=== PATIENT | female | born 1995 ===

== ENCOUNTER 2017-01-31 11:02 | Emergency (ER) | payer MEDICAID ==
[2017-01-31 11:13] VITALS: BMI 29.8
[2017-01-31 11:16] VITALS: TEMP 98.4
[2017-01-31] MEDS ORDERED: Sodium Chloride 0.9% 1,000 ML IV STA (11:36)
--- NOTE | 2017-01-31 11:43 | ED PDOC ---
Arrival/HPI - General Chief Complaint: Syncope Time Seen by Provider: 01/31/17 11:13 Historian: Patient - History of Present Illness Narrative History of Present Illness (Text): 01/31/17 11:37 Oskar Luna is a 21 year old female who presents to the emergency department for evaluation following a syncopal episode prior to arrival. States she felt dizzy, nauseated and room spinning sensation immediately before passing out. States she experienced similar symptoms 6 months ago and was evaluated at [facility] at that time. She also informs that she has been feeling intermittent dizzy spells and transient syncopal episodes over the past month, which has increased in frequency recently. Currently complains of a posterior headache, and neck pain due to fall. Also notes she had a cough for 10 days and mild chest pain upon deep inspiration. Denies any fever, shortness of breath, vomiting, diarrhea , or any other complaints at this time. Time/Duration: Prior to Arrival Symptom Onset: Sudden Symptom Course: Improving Activities at Onset: Light Context: Home Past Medical History - Provider Review Nursing Documentation Reviewed: Yes - Infectious Disease Hx of Infectious Diseases: None - Cardiac Hx Cardiac Disorders: Yes Hx Hypotension: Yes - Pulmonary Hx Respiratory Disorders: No - Neurological Hx Neurological Disorder: Yes Hx Dizziness: Yes Hx Syncope: Yes - HEENT Hx HEENT Disorder: No - Renal Hx Renal Disorder: No - Endocrine/Metabolic Hx Endocrine Disorders: No - Hematological/Oncological Hx Blood Disorders: No - Integumentary Hx Dermatological Disorder: No - Musculoskeletal/Rheumatological Hx Musculoskeletal Disorders: No - Gastrointestinal Hx Gastrointestinal Disorders: No - Genitourinary/Gynecological Hx Genitourinary Disorders: No - Psychiatric Hx Psychophysiologic Disorder: Yes Hx Anxiety: Yes Hx Substance Use: No - Surgical History Other/Comment: L foot surgery - Anesthesia Hx Anesthesia: Yes Hx Anesthesia Reactions: No Family/Social History - Physician Review Nursing Documentation Reviewed: Yes Family/Social History: No Known Family HX Smoking Status: Never Smoked Hx Alcohol Use: No Hx Substance Use: No Allergies/Home Meds Allergies/Adverse Reactions: Allergies No Known Allergies Allergy (Verified 01/31/17 11:13) Home Medications: Home Meds Medication Instructions Recorded Confirmed Norethindrone-E.estradiol-Iron [Lo 1 tab PO DAILY 01/31/17 01/31/17 Loestrin Fe 1-10 Tablet] Spironolactone [Aldactone] 50 mg PO DAILY 01/31/17 01/31/17 Review of Systems - Physician Review All systems were reviewed & negative as marked: Yes - Review of Systems Constitutional: Normal. absent: Fatigue, Fevers Respiratory: Cough. absent: SOB, Sputum Cardiovascular: Chest Pain (upon deep inspiration ) Gastrointestinal: Nausea. absent: Diarrhea, Vomiting Neurological: Headache. absent: Dizziness, Focal Weakness Psychiatric: Normal Physical Exam Vital Signs Reviewed: Yes Vital Signs Temp Pulse Resp BP Pulse Ox 01/31/17 12:47 74 18 108/72 100 01/31/17 11:15 98.4 F 76 18 106/69 99 Temperature: Afebrile Blood Pressure: Normal Pulse: Regular Respiratory Rate: Normal Appearance: Positive for: Well-Appearing, Non-Toxic, Comfortable Pain Distress: None Mental Status: Positive for: Alert and Oriented X 3 - Systems Exam Head: Present: Atraumatic, Normocephalic Pupils: Present: PERRL Extroacular Muscles: Present: EOMI Conjunctiva: Present: Normal Ears: Present: Normal, NORMAL TM, Normal Canal. No: Erythema, TM Bulging Mouth: Present: Moist Mucous Membranes Pharnyx: Present: Normal. No: ERYTHEMA, EXUDATE, TONSILS ENLARGED Neck: Present: Normal Range of Motion, MIDLINE TENDERNESS (mid c-spine ttp). No : Paraspinal Tenderness Respiratory/Chest: Present: Clear to Auscultation, Good Air Exchange. No: Respiratory Distress, Accessory Muscle Use Cardiovascular: Present: Regular Rate and Rhythm, Normal S1, S2. No: Murmurs Abdomen: Present: Normal Bowel Sounds. No: Tenderness, Distention, Peritoneal Signs, Rebound, Guarding Upper Extremity: Present: Normal Inspection. No: Cyanosis, Edema Lower Extremity: Present: Normal Inspection. 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 finger to nose test negative. ) Skin: Present: Warm, Dry, Normal Color. No: Rashes Psychiatric: Present: Alert, Oriented x 3, Normal Insight, Normal Concentration Medical Decision Making ED Course and Treatment: 01/31/17 11:47 Impression: A 21 year old female who presents to the emergency department complaining of headache and neck pain s/p syncopal episode. Patient is alert, Oriented X3 and has no focal neurological deficits. Differential Diagnosis included but are not limited to: Anxiety vs. Vertigo vs. Cardioneurogenic syncope Plan: -- CT cervial spine -- CT Head -- EKG -- Labs -- CXR -- Toradol -- Antivert -- IV fluids -- POC -- Urinalysis -- Reassess and disposition Progress Notes: 01/31/17 11:50 EKG interpreted by me: NSR @ 82 bpm. normal axis. normal interval. normal ekg 01/31/17 12:40 CT Head reviewed: Normal CT of the head CT cervical spine: normal CXR: nad as read by me. 01/31/17 13:32 Patient with noted history with normal ekg, brain CT, CXR, and blood work as well as normal exam. No acute findings to suggest grave etiology. Given recurrence of the events, will recommend cardiology and neuro follow up ( patient reports previous neuro work up years ago, including normal EEG). Urine also shows UTI - will be ok for d/c to follow up outpatient. - Lab Interpretations Lab Results: 01/31/17 12:00 01/31/17 11:36 Lab Results 01/31/17 12:00: D-Dimer, Quantitative 0.19 01/31/17 12:00: WBC 8.5, RBC 4.14, Hgb 12.0, Hct 35.9 L, MCV 86.7, MCH 29.0, MCHC 33.4, RDW 12.6, Plt Count 210, MPV 10.4, Gran % 70.5 H, Lymph % (Auto) 19.8 L, Dewey % (Auto) 7.1 H, Eos % (Auto) 2.4, Baso % (Auto) 0.2, Gran # 6.00, Lymph # 1.7, Dewey # 0.6, Eos # 0.2, Baso # 0.02 01/31/17 11:45: Urine Opiates Screen Negative, Urine Methadone Screen Negative, Ur Barbiturates Screen Negative, Ur Phencyclidine Scrn Negative, Ur Amphetamines Screen Negative, U Benzodiazepines Scrn Negative, U Oth Cocaine Metabols Negative, U Cannabinoids Screen Negative 01/31/17 11:45: Urine Color Yellow, Urine Appearance Sl cloudy, Urine pH 6.5, Ur Specific [place] 1.020, Urine Protein Trace H, Urine Glucose (UA) Negative, Urine Ketones Negative, Urine Blood Negative, Urine Nitrate Negative, Urine Bilirubin Negative, Urine Urobilinogen 1.0 H, Ur Leukocyte Esterase Small H, Urine RBC 0 - 2, Urine WBC 5 - 10, Ur Epithelial Cells 4 - 5, Urine Bacteria Mod 01/31/17 11:36: Sodium 140, Potassium 3.7, Chloride 101, Carbon Dioxide 28, Anion Gap 15, BUN 11, Creatinine 0.8, Est GFR ( Amer) > 60, Est GFR (Non- Af Amer) > 60, Random Glucose 94, Calcium 9.3, Magnesium 2.0, Total Bilirubin 0.6, AST 25, ALT 30, Alkaline Phosphatase 79, Total Protein 7.9, Albumin 4.3, Globulin 3.6, Albumin/Globulin Ratio 1.2, Lipase 68 I have reviewed the lab results: Yes - RAD Interpretation Narrative RAD Interpretations (Text): 01/31/17 12:39 PROCEDURE: CT HEAD WITHOUT CONTRAST. FINDINGS: HEMORRHAGE: No intracranial hemorrhage. BRAIN: No mass effect or edema. No atrophy or chronic microvascular ischemic changes. VENTRICLES: Unremarkable. No hydrocephalus. CALVARIUM: Unremarkable. PARANASAL SINUSES: Unremarkable as visualized. No significant inflammatory changes. MASTOID AIR CELLS: Unremarkable as visualized. No inflammatory changes. OTHER FINDINGS: None. IMPRESSION: Normal CT of the Head. Radiology Orders: 01/31/17 11:33 Brain [HEAD W/O CONTRAST] [CT] Stat 01/31/17 11:34 CERVICAL SPINE W/O CONTRAST [CT] Stat 01/31/17 11:35 CHEST TWO VIEWS (PA/LAT) [RAD] Stat [employer] Manager: Radiologist - Medication Orders Current Medication Orders: Discontinued Medications Sodium Chloride (Sodium Chloride 0.9%) 1,000 mls @ 999 mls/hr IV .Q1H1M STA Stop: 01/31/17 12:36 Last Admin: 01/31/17 12:06 Dose: 999 mls/hr Ketorolac Tromethamine (Toradol) 30 mg IVP STAT STA Stop: 01/31/17 11:37 Last Admin: 01/31/17 12:06 Dose: 30 mg Meclizine HCl (Antivert) 25 mg PO STAT STA Stop: 01/31/17 11:37 Last Admin: 01/31/17 12:06 Dose: 25 mg - Scribe Statement The provider has reviewed the documentation as recorded by the Scribe Patsy Resendiz Provider Attestation: Provider Scribe Attestation: All medical record entries made by the Scribe were at my direction and personally dictated by me. I have reviewed the chart and agree that the record accurately reflects my personal performance of the history, physical exam, medical decision making, and the department course for this patient. I have also personally directed, reviewed, and agree with the discharge instructions and disposition. Disposition/Present on Arrival - Present on Arrival Any Indicators Present on Arrival: No History of DVT/PE: No History of Uncontrolled Diabetes: No Urinary Catheter: No History of Decub. Ulcer: No History Surgical Site Infection Following: None - Disposition Have Diagnosis and Disposition been Completed?: Yes Diagnosis: Syncope, Urinary tract infection Disposition: HOME/ ROUTINE Disposition Time: 13:15 Patient Plan: Discharge Patient Problems: Current Active Problems Problem Status Onset Syncope Acute Urinary tract infection Acute Condition: GOOD Discharge Instructions (ExitCare): Syncope (ED) Additional Instructions: Take the medications as prescribed. Drink plenty of fluids. Follow up with primary care. Follow up with neurology and cardiology. Also recommend follow up with psychiatry / counseling. Return to the emergency department if any new concerning symptoms. Prescriptions: Meclizine [Antivert] 1 tab PO TID PRN #15 tab PRN Reason: Dizziness Nitrofurantoin Macrocrystals [Macrobid] 100 mg PO BID #14 cap Ondansetron ODT [Zofran ODT] 1 tab PO Q8H PRN #10 odt PRN Reason: Nausea/Vomiting Referrals: [facility] [place] [Outside] - Follow up with primary Bob Warren MD [Staff Provider] - Follow up with primary Magdalene Colindres MD [Staff Provider] - Follow up with primary Derik Jamison MD [Staff Provider] - Follow up with primary Forms: [employer] ([employer]in[employer])
[2017-01-31 11:56] LABS: PH,URINE 6.5 (4.7-8.0); URINE BILIRUBIN NEGATIVE (NEGATIVE); URINE BLOOD NEGATIVE (NEGATIVE); URINE GLUCOSE (UA) NEGATIVE (NEGATIVE); URINE LEUKOCYTE ESTERASE SMALL Leu/uL (NEGATIVE); URINE NITRATE NEGATIVE (NEGATIVE); URINE PROTEIN TRACE mg/dL (<30 mg/dL)
[2017-01-31 11:58] LABS: URINE COLOR YELLOW (YELLOW)
[2017-01-31 12:13] LABS: URINE BACTERIA MOD (NEG); URINE RBC 0 - 2 /hpf (0-2)
[2017-01-31 12:15] LABS: BASO # 0.02 K/mm3 (0.0-2.0); BASO % 0.2 % (0.0-3.0); EOS # 0.2 (0.0-0.7); EOS % 2.4 % (1.5-5.0); GRAN % 70.5 % (50.0-68.0); LYMPH # 1.7 (1.2-3.4); LYMPH % 19.8 % (22.0-35.0); MEAN CELL VOLUME 86.7 fl (80.0-105.0); MEAN CORPUSCULAR HGB CONC 33.4 g/dl (31.0-37.0); MEAN PLATELET VOLUME 10.4 fl (7.0-11.0); MONO # 0.6 (0.1-0.6); MONO % 7.1 % (1.0-6.0); PLATELET COUNT 210 10^3/uL (120.0-450.0); RBC 4.14 10^6/uL (3.5-6.1); RED CELL DISTRIBUTION WIDTH 12.6 % (11.5-14.5); WHITE BLOOD COUNT 8.5 10^3/ul (4.5-11.0)
--- NOTE | 2017-01-31 12:18 | CT ---
PROCEDURE: CT HEAD WITHOUT CONTRAST. HISTORY: hit head, LOC, headache COMPARISON: None available. TECHNIQUE: Axial computed tomography images were obtained through the head/brain without intravenous contrast. Radiation dose: Total exam DLP = 746 mGy-cm. This CT exam was performed using one or more of the following dose reduction techniques: Automated exposure control, adjustment of the mA and/or kV according to patient size, and/or use of iterative reconstruction technique. FINDINGS: HEMORRHAGE: No intracranial hemorrhage. BRAIN: No mass effect or edema. No atrophy or chronic microvascular ischemic changes. VENTRICLES: Unremarkable. No hydrocephalus. CALVARIUM: Unremarkable. PARANASAL SINUSES: Unremarkable as visualized. No significant inflammatory changes. MASTOID AIR CELLS: Unremarkable as visualized. No inflammatory changes. OTHER FINDINGS: None. IMPRESSION: Normal CT of the Head.
[2017-01-31 12:20] LABS: BARBITURATES, UR NEGATIVE (NEGATIVE); BENZODIAZEPINES, UR NEGATIVE (NEGATIVE); OPIATES, UR NEGATIVE (NEGATIVE); PHENCYCLIDINE, UR NEGATIVE (NEGATIVE)
[2017-01-31 12:24] LABS: URINE APPEARANCE SL CLOUDY (CLEAR)
[2017-01-31 12:25] LABS: ALB/GLOB RATIO 1.2 (1.1-1.8); ALBUMIN 4.3 g/dL (3.0-4.8); ALT/SGPT 30 U/L (7-56); AST/SGOT 25 U/L (15-39); BLOOD UREA NITROGEN 11 mg/dL (7-21); CALCIUM 9.3 mg/dL (8.4-10.5); GFR AFRICAN-AMERICAN > 60; GFR NON-AFRICAN AMERICAN > 60; LIPASE 68 U/L (23-300)
--- NOTE | 2017-01-31 12:40 | CT ---
PROCEDURE: CT Cervical Spine without contrast HISTORY: Fall, hit back of head, syncope COMPARISON: None available. TECHNIQUE: Axial computed tomography images were obtained of the cervical spine without the use of intravenous contrast. Coronal and sagittal reformatted images were created and reviewed. Radiation dose: Total exam DLP = 465 mGy-cm. This CT exam was performed using one or more of the following dose reduction techniques: Automated exposure control, adjustment of the mA and/or kV according to patient size, and/or use of iterative reconstruction technique. FINDINGS: VERTEBRAE: No fracture. Normal alignment. No destructive bony lesion. DISCS/SPINAL CANAL/NEURAL FORAMINA: No significant central canal or neural foraminal stenosis. Discs heights are grossly preserved. PARASPINAL SOFT TISSUES: Unremarkable. OTHER FINDINGS: None. IMPRESSION: Unremarkable CT of the cervical spine.
--- NOTE | 2017-01-31 13:10 | CARD ---
APPROVED REPORT EKG Measurement Heart [id number] <Conclusion> Normal sinus rhythm Normal ECG
--- NOTE | 2017-01-31 13:34 | RAD ---
PROCEDURE: HISTORY: Chest pain. Syncope COMPARISON: None TECHNIQUE: Frontal lateral views FINDINGS: No infiltrate pleural effusion thickening or masses noted. The heart hilar and mediastinal structures are unremarkable. No bony a soft tissue pathology seen. IMPRESSION: No acute cardiopulmonary pathology noted
[2017-01-31 14:12] VITALS: BP 102/86; PULSE 78; RESP 16; O2SAT 99
== END 2017-01-31 14:13 | disposition home or self-care (01) ==
LOC: ED 11:02
DX: R55 Syncope and collapse (principal); N39.0 Urinary tract infection, site not specified
CPT/HCPCS: 70450; 71020; 72125; 80053; 80324; 80345; 80346; 80349; 80353; 80358; 80361; 81001; 83690; 83735; 83992; 85025; 85378; 87086; 93005; 96374; 99285; J1885; J7040